=== PATIENT | female | born 1960 | race African-American/Black ===

== ENCOUNTER 2022-07-22 09:55 | Inpatient (IN) | payer MEDICARE ==
[~2022-07-22] VITALS: Ht 165.1 cm; Wt 85.0 kg
[2022-07-22 11:27] LABS: Basophils # (auto) 0.1 10 ^3/uL (0-0.2); Basophils % (auto) 1.2 % (0.0-2.0); Eosinophils # (auto) 0.2 10 ^3/uL (0-0.8); Eosinophils % (auto) 2.1 % (0.0-7.0); Hematocrit 28.4 % (36.0-46.0); Hemoglobin 9.5 g/dL (12.2-16.2); Lymphocytes # (auto) 0.5 10 ^3/uL (0.4-5.4); Lymphocytes % (auto) 6.5 % (10.0-50.0); Mean Corpuscular Hgb Conc. 33.5 g/dL (32.0-36.0); Mean Corpuscular Volume 89.7 fL (80.0-100.0); Monocytes # (auto) 0.9 10 ^3/uL (0-1.3); Monocytes % (auto) 11.2 % (0.0-12.0); Neutrophils # (auto) 6.2 10 ^3/uL (1.6-8.6); Nucleated Red Blood Cells % 0.1 %; Red Blood Cells 3.16 10^6/uL (4.0-5.20); Red Cell Distribution Width 15.9 % (11.8-14.3); White Blood Cell 7.8 10^3/uL (4.4-10.8)
[2022-07-22 12:14] LABS: Albumin 2.8 g/dL (3.4-5.0); Potassium 4.6 mmol/L (3.5-5.1)
[2022-07-22 12:20] LABS: BUN/Creatinine Ratio 3.7; Bilirubin, Total 0.5 mg/dL (0.2-1.0); Calcium 9.9 mg/dL (8.5-10.1); Total Protein 7.8 g/dL (6.4-8.2)
[2022-07-22] MEDS ORDERED: DEXTROSE 50% SYRINGE 50 ML IV ONE (14:48)
[2022-07-22] MEDS ORDERED: CARV12.544 PO (15:57)
[2022-07-22] MEDS ORDERED: PANT40T PO (15:57)
[2022-07-22] MEDS ORDERED: BRIM0.1S3 RIGHTEYE (15:57)
[2022-07-22] MEDS ORDERED: ISOS20TA5 PO (15:57)
[2022-07-22] MEDS ORDERED: ATOR40TA52 PO (15:57)
[2022-07-22] MEDS ORDERED: LISI20TA28 PO (15:57)
[2022-07-22] MEDS ORDERED: CLOP75TA70 PO (15:57)
[2022-07-22] MEDS ORDERED: NIFE1TAB30 (15:57)
[2022-07-22] MEDS ORDERED: DEXTROSE (50%) 50ML SYRG IV PRN (16:00)
[2022-07-22] MEDS: InsuLIN REG 1unit/0.01ml Soln (100units/ml) SC SCH ×2 (17:00→21:37)
[2022-07-22] MEDS: ACCU-CHEK COMFORT CURVE STRIP VI SCH ×2 (17:24→21:37)
[2022-07-22] MEDS: CARVEDILOL 12.5 MG TAB PO SCH (21:56)
[2022-07-22] MEDS: ISOSORBIDE DINITRATE 10 MG TAB PO SCH (21:57)
[2022-07-22] MEDS: BRIMONIDINE 0.2% OPTH Soln 5ml RIGHTEYE SCH (22:03)
[2022-07-23] MEDS: ISOSORBIDE DINITRATE 10 MG TAB PO SCH ×3 (06:00→21:58)
[2022-07-23] MEDS: ACCU-CHEK COMFORT CURVE STRIP VI SCH ×4 (06:43→21:59)
[2022-07-23] MEDS: InsuLIN REG 1unit/0.01ml Soln (100units/ml) SC SCH ×4 (06:43→21:59)
[2022-07-23] MEDS: LISINOPRIL 20 MG TAB PO SCH (10:01)
[2022-07-23] MEDS: PANTOPRAZOLE 40 MG TAB PO SCH (10:01)
[2022-07-23] MEDS: CARVEDILOL 12.5 MG TAB PO SCH ×2 (10:01→21:58)
[2022-07-23] MEDS: CLOPIDOGREL BISULFATE 75 MG TAB PO SCH (10:02)
[2022-07-23] MEDS: BRIMONIDINE 0.2% OPTH Soln 5ml RIGHTEYE SCH ×2 (10:02→21:59)
[2022-07-23 11:39] LABS: Potassium 4.3 mmol/L (3.5-5.1)
[2022-07-23 11:50] LABS: BUN/Creatinine Ratio 3.7; Calcium 9.4 mg/dL (8.5-10.1)
[2022-07-23] MEDS ORDERED: NIFE1TAB36 PO (21:26)
[2022-07-23 22:00] VITALS: BP 151/69
[2022-07-24 05:00] VITALS: BP 158/62
[2022-07-24] MEDS ORDERED: ACETAMINOPHEN 325 MG TAB PO PRN (05:15)
[2022-07-24] MEDS: ACCU-CHEK COMFORT CURVE STRIP VI SCH ×4 (06:17→22:15)
[2022-07-24] MEDS: ISOSORBIDE DINITRATE 10 MG TAB PO SCH ×3 (06:17→22:01)
[2022-07-24] MEDS: InsuLIN REG 1unit/0.01ml Soln (100units/ml) SC SCH ×4 (06:17→22:00)
[2022-07-24] MEDS ORDERED: SODIUM CHL 0.9% 1000 ML BAG XX ONE (07:00)
[2022-07-24 09:06] VITALS: BP 153/72
[2022-07-24 12:30] VITALS: BP 172/83
[2022-07-24] MEDS: PANTOPRAZOLE 40 MG TAB PO SCH (12:43)
[2022-07-24] MEDS: CLOPIDOGREL BISULFATE 75 MG TAB PO SCH (12:44)
[2022-07-24] MEDS: LISINOPRIL 20 MG TAB PO SCH (12:44)
[2022-07-24] MEDS: CARVEDILOL 12.5 MG TAB PO SCH ×2 (12:44→22:02)
[2022-07-24] MEDS: BRIMONIDINE 0.2% OPTH Soln 5ml RIGHTEYE SCH ×2 (14:35→22:02)
[2022-07-24 16:49] VITALS: BP 103/67
[2022-07-24 20:00] VITALS: BP 167/72
[2022-07-24 22:27] VITALS: BP 167/72
[2022-07-25 02:02] LABS: Hepatitis C Antibody Negative (Negative)
[2022-07-25 05:01] VITALS: BP 173/76
[2022-07-25] MEDS: InsuLIN REG 1unit/0.01ml Soln (100units/ml) SC SCH ×4 (07:00→21:37)
[2022-07-25] MEDS: ACCU-CHEK COMFORT CURVE STRIP VI SCH ×4 (07:02→21:37)
[2022-07-25] MEDS: ISOSORBIDE DINITRATE 10 MG TAB PO SCH ×3 (07:06→21:32)
[2022-07-25 08:30] VITALS: BP 159/77
[2022-07-25] MEDS: CLOPIDOGREL BISULFATE 75 MG TAB PO SCH (09:21)
[2022-07-25] MEDS: PANTOPRAZOLE 40 MG TAB PO SCH (09:21)
[2022-07-25] MEDS: BRIMONIDINE 0.2% OPTH Soln 5ml RIGHTEYE SCH ×2 (09:22→21:33)
[2022-07-25] MEDS: CARVEDILOL 12.5 MG TAB PO SCH ×2 (09:22→21:33)
[2022-07-25] MEDS: LISINOPRIL 20 MG TAB PO SCH (09:22)
[2022-07-25 12:30] VITALS: BP 121/74
[2022-07-25 17:00] VITALS: BP 103/67
[2022-07-25 22:00] VITALS: BP 154/74
[2022-07-26 05:00] VITALS: BP 133/76
[2022-07-26] MEDS: ISOSORBIDE DINITRATE 10 MG TAB PO SCH ×3 (05:27→21:30)
[2022-07-26] MEDS: InsuLIN REG 1unit/0.01ml Soln (100units/ml) SC SCH ×4 (06:24→21:37)
[2022-07-26] MEDS: ACCU-CHEK COMFORT CURVE STRIP VI SCH ×4 (06:26→21:37)
[2022-07-26] MEDS: PANTOPRAZOLE 40 MG TAB PO SCH (08:50)
[2022-07-26] MEDS: CLOPIDOGREL BISULFATE 75 MG TAB PO SCH (08:50)
[2022-07-26] MEDS: CARVEDILOL 12.5 MG TAB PO SCH ×2 (08:50→21:29)
[2022-07-26] MEDS: LISINOPRIL 20 MG TAB PO SCH (08:51)
[2022-07-26] MEDS: BRIMONIDINE 0.2% OPTH Soln 5ml RIGHTEYE SCH ×2 (08:51→21:29)
[2022-07-26 09:00] VITALS: BP 172/80
[2022-07-26 12:43] VITALS: BP 152/71
[2022-07-26] MEDS ORDERED: SODIUM CHL 0.9% 1000 ML BAG XX ONE (15:30)
[2022-07-26 16:47] VITALS: BP 156/77
[2022-07-26 20:00] VITALS: BP 115/64
[2022-07-26] MEDS ORDERED: EPOETIN ALFA-EPBX 10,000 UNIT/1ML VIAL SC ONE (21:00)
[2022-07-26 22:00] VITALS: BP 158/72
[2022-07-27 05:19] VITALS: BP 159/79
[2022-07-27] MEDS: ACCU-CHEK COMFORT CURVE STRIP VI SCH ×2 (06:01→12:38)
[2022-07-27] MEDS: ISOSORBIDE DINITRATE 10 MG TAB PO SCH (06:03)
[2022-07-27] MEDS: InsuLIN REG 1unit/0.01ml Soln (100units/ml) SC SCH ×2 (06:05→12:41)
[2022-07-27 08:00] VITALS: BP 163/73
[2022-07-27] MEDS: CARVEDILOL 12.5 MG TAB PO SCH (10:12)
[2022-07-27] MEDS: PANTOPRAZOLE 40 MG TAB PO SCH (10:12)
[2022-07-27] MEDS: CLOPIDOGREL BISULFATE 75 MG TAB PO SCH (10:12)
[2022-07-27] MEDS: BRIMONIDINE 0.2% OPTH Soln 5ml RIGHTEYE SCH (10:13)
[2022-07-27] MEDS: LISINOPRIL 20 MG TAB PO SCH (10:13)
[2022-07-27 12:00] VITALS: BP 159/80
[2022-07-27 13:06] VITALS: BP 159/80
== END 2022-07-27 14:02 | DRG 70 ==
LOC: EDBD 09:55 → ER 10:01 → OVERFLOW 15:57 → CENTRAL 07-23 21:08
PROVIDERS: ADMIT Nurse Practitioner Acute Care; ATTEND Family Medicine
PROC: 5A1D70Z Performance of Urinary Filtration, Intermittent, Less than 6 Hours Per Day (ICD-10-PCS; principal; 2022-07-24)
PROC: 5A1D70Z Performance of Urinary Filtration, Intermittent, Less than 6 Hours Per Day (ICD-10-PCS; 2022-07-26)
DX: G93.41 Metabolic encephalopathy (principal); E43 Unspecified severe protein-calorie malnutrition; N18.6 End stage renal disease; I13.2 Hypertensive heart and chronic kidney disease with heart failure and with stage 5 chronic kidney disease, or end stage renal disease; N25.81 Secondary hyperparathyroidism of renal origin; D63.1 Anemia in chronic kidney disease; E11.22 Type 2 diabetes mellitus with diabetic chronic kidney disease; E11.649 Type 2 diabetes mellitus with hypoglycemia without coma; E78.00 Pure hypercholesterolemia, unspecified; I50.9 Heart failure, unspecified; E87.6 Hypokalemia; H40.9 Unspecified glaucoma; H54.7 Unspecified visual loss; Z91.15 Patient's noncompliance with renal dialysis; Z99.2 Dependence on renal dialysis; Z99.3 Dependence on wheelchair; Z87.891 Personal history of nicotine dependence; Z83.3 Family history of diabetes mellitus; Z82.49 Family history of ischemic heart disease and other diseases of the circulatory system
CPT/HCPCS: 36415; 70450; 71045; 80048; 80053; 82962; 83880; 85025; 86803; 87081; 87340; 87426; 90935; 93005; G0378; J1815